=== PATIENT | female | born 1950 | race African-American/Black ===

== ENCOUNTER 2018-06-17 11:57 | Emergency (ER) | payer OTHER ==
[~2018-06-17] VITALS: Ht 167.6 cm; Wt 121.0 kg
[~2018-06-17 11:57] MED LIST: ATOR40TA70 PO; CLOP75TA33 PO; LISI-186 PO; METF10004 PO; MULTIVITAMIN PO; TRAZ-213 PO; VERA180T MT
[2018-06-17 14:11] LABS: BASOPHILS % 0.2 % (0.0-2.0); EOSINOPHILS % 0.1 % (0.0-5.0); HEMATOCRIT. 28.2 % (36.0-48.0); HEMOGLOBIN. 9.8 g/dL (12.0-16.0); LYMPHOCYTES % 22.8 % (20.0-50.0); MEAN CORPUSCULAR HEMOGLOBIN 31.7 pg (28.0-32.0); MEAN CORPUSCULAR VOLUME 91.7 fL (81.0-99.0); MEAN PLATELET VOLUME 7.4 fl (7.4-10.4); MONOCYTES % 6.4 % (2.0-8.0); NEUTROPHILS % 70.5 % (40.0-76.0); PLATELET 310 x1000/uL (130-400); RED BLOOD CELL COUNT 3.08 mill/uL (4.2-5.4); RED CELL DISTRIBUTION WIDTH 14.3 % (11.6-14.6)
[2018-06-17 14:14] LABS: CHLORIDE 107 mEq/L (98-107)
[2018-06-17 14:15] LABS: PROTHROMBIN TIME 9.6 sec (9.1-11.1)
[2018-06-17] MEDS ORDERED: DEXTROSE 50% WATER 50ML SYRINGE IV ONE (14:30)
[2018-06-17 14:48] LABS: CLARITY URINE TURBID (CLEAR); COLOR URINE YELLOW (YELLOW); KETONES URINE TRACE (NEGATIVE); LEUKOCYTE ESTERASE URINE 3+ (NEGATIVE); NITRITE URINE POSITIVE (NEGATIVE); OCCULT BLOOD URINE NEGATIVE (NEGATIVE); PROTEIN URINE NEGATIVE (NEGATIVE); SPECIFIC GRAVITY URINE 1.013 (1.005-1.030)
[2018-06-17 18:16] VITALS: BP 122/74
== END 2018-06-17 18:35 | disposition home or self-care (01) ==
LOC: ER 11:57
DX: E11.649 Type 2 diabetes mellitus with hypoglycemia without coma (principal); N39.0 Urinary tract infection, site not specified; I69.392 Facial weakness following cerebral infarction; I69.354 Hemiplegia and hemiparesis following cerebral infarction affecting left non-dominant side; G40.909 Epilepsy, unspecified, not intractable, without status epilepticus; I10 Essential (primary) hypertension; Z88.2 Allergy status to sulfonamides; D64.9 Anemia, unspecified
CPT/HCPCS: 36415; 80053; 81003; 82962; 85025; 85610; 87077; 87086; 87186; 96374; 99284

== ENCOUNTER 2021-03-25 11:04 | Emergency (ER) | payer MEDICARE, OTHER ==
[~2021-03-25] VITALS: Ht 165.1 cm; Wt 91.0 kg
[~2021-03-25 11:04] MED LIST changes: +AM250 PO; -METF10004 PO; -TRAZ-213 PO; -VERA180T MT
[2021-03-25 12:53] LABS: BASOPHILS % 0.8 % (0.0-2.0); EOSINOPHILS % 1.7 % (0.0-5.0); HEMATOCRIT. 30.4 % (36.0-48.0); HEMOGLOBIN. 10.4 g/dL (12.0-16.0); LYMPHOCYTES % 22.3 % (20.0-50.0); MEAN CORPUSCULAR HEMOGLOBIN 31.4 pg (28.0-32.0); MEAN CORPUSCULAR VOLUME 91.5 fL (81.0-99.0); MEAN PLATELET VOLUME 6.9 fl (7.4-10.4); MONOCYTES % 6.6 % (2.0-8.0); NEUTROPHILS % 68.6 % (40.0-76.0); PLATELET 281 x1000/uL (130-400); RED BLOOD CELL COUNT 3.32 mill/uL (4.2-5.4); RED CELL DISTRIBUTION WIDTH 13.5 % (11.6-14.6)
[2021-03-25 12:55] LABS: CHLORIDE 109 mEq/L (98-107)
[2021-03-25 12:59] LABS: ETHANOL BLOOD < 10 mg/dL
[2021-03-25 14:08] LABS: *BARBITURATES SCREEN URINE NEGATIVE (NEGATIVE); *BENZODIAZEPINES SCREEN URINE NEGATIVE (NEGATIVE); *COCAINE SCREEN URINE NEGATIVE (NEGATIVE); CANNABINOID URINE SCREEN NEGATIVE (NEGATIVE); METHADONE URINE SCREEN NEGATIVE (NEGATIVE); OPIATES URINE SCREEN NEGATIVE (NEGATIVE); PHENCYCLIDINE URINE SCREEN NEGATIVE (NEGATIVE)
[2021-03-25 14:09] LABS: *AMPHETAMINES SCREEN URINE NEGATIVE (NEGATIVE)
[2021-03-25 15:31] LABS: CLARITY URINE CLEAR (CLEAR); COLOR URINE YELLOW (YELLOW); KETONES URINE NEGATIVE (NEGATIVE); LEUKOCYTE ESTERASE URINE TRACE (NEGATIVE); NITRITE URINE NEGATIVE (NEGATIVE); OCCULT BLOOD URINE NEGATIVE (NEGATIVE); PROTEIN URINE NEGATIVE (NEGATIVE)
[2021-03-25 16:28] VITALS: BP 132/55
== END 2021-03-25 18:01 | disposition short-term general hospital (02) ==
LOC: ER 11:04
DX: G93.41 Metabolic encephalopathy (principal); R53.1 Weakness; R41.82 Altered mental status, unspecified; R41.0 Disorientation, unspecified; E11.9 Type 2 diabetes mellitus without complications; I10 Essential (primary) hypertension; Z88.2 Allergy status to sulfonamides; Z79.899 Other long term (current) drug therapy; Z86.73 Personal history of transient ischemic attack (TIA), and cerebral infarction without residual deficits; Z20.822 Contact with and (suspected) exposure to COVID-19
CPT/HCPCS: 36415; 71045; 80053; 80305; 80320; 81003; 82962; 83880; 84484; 85025; 87426; 93005; 99285; G0480

== ENCOUNTER 2024-10-22 09:53 | Emergency (ER) | payer OTHER ==
[~2024-10-22] VITALS: Ht 167.6 cm; Wt 82.0 kg
[2024-10-22 09:54] VITALS: BP 123/68; PULSE 60; RESP 18; O2SAT 100
== END 2024-10-22 13:06 | disposition home or self-care (01) ==
LOC: ER 09:53
DX: S09.90XA Unspecified injury of head, initial encounter (principal); E11.9 Type 2 diabetes mellitus without complications; I10 Essential (primary) hypertension; Z88.2 Allergy status to sulfonamides; Z86.73 Personal history of transient ischemic attack (TIA), and cerebral infarction without residual deficits; Z86.59 Personal history of other mental and behavioral disorders; W01.0XXA Fall on same level from slipping, tripping and stumbling without subsequent striking against object, initial encounter; Y93.89 Activity, other specified; Y92.89 Other specified places as the place of occurrence of the external cause; Y99.8 Other external cause status
CPT/HCPCS: 99284